=== PATIENT | male | born 2000 ===

== ENCOUNTER 2021-03-17 04:19 | Emergency (ER) | payer OTHER ==
[~2021-03-17] VITALS: Ht 188 cm; Wt 91.6 kg
[2021-03-17] MEDS ORDERED: ALPRAZOLAM 0.5 MG TAB PO STA (04:42)
[2021-03-17] MEDS ORDERED: ALPRAZOLAM 0.25 MG TAB ONE (05:29)
== END 2021-03-17 05:44 | disposition home or self-care (01) ==
LOC: FSED 04:45
DX: R07.89 Other chest pain (principal); R00.2 Palpitations; F12.10 Cannabis abuse, uncomplicated
CPT/HCPCS: 71046; 93005; 99283

== ENCOUNTER 2021-03-26 01:39 | Emergency (ER) | payer OTHER ==
[~2021-03-26] VITALS: Ht 188 cm; Wt 91.6 kg
[2021-03-26] MEDS ORDERED: BELLADONNA ALK/PHENOBARBITAL 5 ML UDC PO STA (01:50)
[2021-03-26] MEDS ORDERED: DONNATAL/LIDOCAINE/MAALOX 30 ML SUSP PO STA (01:50)
[2021-03-26] MEDS ORDERED: ONDANSETRON HCL 4 MG ORAL DISINTEGRATING TAB PO STA (01:50)
[2021-03-26] MEDS ORDERED: MAGNESIUM/ALUMINUM/SIMETHICONE 30 ML UDC PO STA (01:50)
[2021-03-26] MEDS ORDERED: LIDOCAINE VISC 2% SOLN 15 ML UDC PO STA (01:50)
[2021-03-26] MEDS ORDERED: LIDOCAINE VISC 2% SOLN 15 ML UDC ONE (02:04)
[2021-03-26] MEDS ORDERED: BELLADONNA ALK/PHENOBARBITAL 5 ML UDC ONE (02:04)
[2021-03-26] MEDS ORDERED: ONDANSETRON HCL 4 MG ORAL DISINTEGRATING TAB ONE (02:04)
[2021-03-26] MEDS ORDERED: MAGNESIUM/ALUMINUM/SIMETHICONE 30 ML UDC ONE (02:04)
[2021-03-26] MEDS ORDERED: PROMETHAZINE HCL 25 MG TAB ONE (02:12)
[2021-03-26] MEDS ORDERED: PEPCID20 MG PO (02:45)
[2021-03-26] MEDS ORDERED: ONDANSETRON ODT4 MG PO (02:45)
== END 2021-03-26 03:45 | disposition home or self-care (01) ==
LOC: FSED 01:55
DX: R00.2 Palpitations (principal); R11.2 Nausea with vomiting, unspecified
CPT/HCPCS: 71046; 93005; 99283; Q0162